=== PATIENT | female | born 1995 | race Caucasian/White ===

== ENCOUNTER 2018-06-27 23:10 | Emergency (ER) | payer MEDICAID, OTHER ==
[2018-06-27 23:10] VITALS: BMI 22.4
[2018-06-27 23:19] VITALS: RESP 18; TEMP 98.7
[2018-06-27] MEDS ORDERED: Sodium Chloride 0.9% 1,000 ML IV STA (23:25)
[2018-06-27 23:55] LABS: BASO # 0.02 K/mm3 (0.0-2.0); BASO % 0.2 % (0.0-3.0); EOS % 0.5 % (1.5-5.0); HEMOGLOBIN 13.5 g/dL (12.0-16.0); LYMPH # 1.3 (1.2-3.4); LYMPH % 14.7 % (22.0-35.0); MEAN CELL VOLUME 81.4 fl (80.0-105.0); MEAN CORPUSCULAR HEMOGLOBIN 27.3 pg (25.0-35.0); MEAN CORPUSCULAR HGB CONC 33.5 g/dl (31.0-37.0); MEAN PLATELET VOLUME 9.5 fl (7.0-11.0); MONO # 0.4 (0.1-0.6); MONO % 4.8 % (1.0-6.0); RBC 4.95 10^6/uL (3.5-6.1); RED CELL DISTRIBUTION WIDTH 13.4 % (11.5-14.5); WHITE BLOOD COUNT 8.7 10^3/uL (4.5-11.0)
[2018-06-27 23:56] LABS: PH,URINE >=9.0 (4.7-8.0); URINE BILIRUBIN NEGATIVE (NEGATIVE); URINE BLOOD NEGATIVE (NEGATIVE); URINE GLUCOSE (UA) NEGATIVE (NEGATIVE); URINE LEUKOCYTE ESTERASE NEGATIVE Leu/uL (NEGATIVE); URINE PROTEIN 30 mg/dL (<30 mg/dL); URINE UROBILINOGEN 0.2 E.U./dL (<1 E.U./dL)
[2018-06-28 00:05] LABS: INR 1.06; PARTIAL THROMBOPLASTIN TIME 27.3 Seconds (26.9-38.3); PROTHROMBIN TIME 11.8 SECONDS (9.4-12.5)
[2018-06-28 00:09] LABS: URINE COLOR YELLOW (YELLOW)
[2018-06-28 00:10] LABS: URINE APPEARANCE SL CLOUDY (CLEAR)
[2018-06-28 00:15] LABS: ALB/GLOB RATIO 1.5 (1.1-1.8); ALBUMIN 4.6 g/dL (3.0-4.8); ALT/SGPT 16 U/L (7-56); AST/SGOT 27 U/L (14-36); BLOOD UREA NITROGEN 12 mg/dL (7-21); CALCIUM 9.4 mg/dL (8.4-10.5); GFR NON-AFRICAN AMERICAN > 60; LIPASE 128 U/L (23-300)
[2018-06-28 01:13] LABS: URINE BACTERIA FEW /hpf; URINE RBC 0 - 2 /hpf (0-2); URINE WBC 0 - 2 /hpf (0-6)
[2018-06-28 01:14] LABS: URINE AMORPHOUS SEDIMENT MODERATE /hpf
--- NOTE | 2018-06-28 01:23 | ED PDOC ---
Arrival/HPI - General Chief Complaint: Abdominal Pain Time Seen by Provider: 06/27/18 23:13 Historian: Patient - History of Present Illness Narrative History of Present Illness (Text): 06/28/18 02:14 23 y/o female with no significant PMH presents to the ED c/o vomiting x 5 hours. Pt admits to approx 5 episodes of nonbloody, nonbilious emesis that began after she took an ibuprofen earlier this evening. Associated burning epigastric pain. Denies fever, chills, urinary symptoms, headache, neck pain/stiffness, sore throat, diarrhea, back pain, cough, SOB, or any other associated complaints. Past Medical History - Provider Review Nursing Documentation Reviewed: Yes - Infectious Disease Hx of Infectious Diseases: None - Cardiac Hx Cardiac Disorders: No - Pulmonary Hx Respiratory Disorders: No - Neurological Hx Neurological Disorder: No - HEENT Hx HEENT Disorder: No - Psychiatric Hx Psychophysiologic Disorder: No Hx Substance Use: Yes (marijuana) - Anesthesia Hx Anesthesia: No Hx Anesthesia Reactions: No Hx Malignant Hyperthermia: No Family/Social History - Physician Review Nursing Documentation Reviewed: Yes Family/Social History: No Known Family HX Smoking Status: Never Smoked Hx Alcohol Use: Yes Hx Substance Use: Yes (marijuana) Allergies/Home Meds Allergies/Adverse Reactions: Allergies No Known Allergies Allergy (Verified 06/27/18 23:21) Review of Systems - Review of Systems Constitutional: Normal. absent: Fevers Eyes: Normal. absent: Vision Changes, Eye Pain ENT: Normal. absent: Sore Throat, Sinus Congestion Respiratory: Normal. absent: SOB Cardiovascular: Normal. absent: Chest Pain, Palpitations, Syncope Gastrointestinal: Abdominal Pain, Nausea, Vomiting. absent: Stool Changes, Constipation, Diarrhea, Appetite Changes Genitourinary Female: Normal. absent: Dysuria, Frequency, Vaginal Bleeding, Vaginal Discharge Musculoskeletal: Normal. absent: Back Pain, Neck Pain Skin: Normal. absent: Rash Neurological: Normal. absent: Headache Physical Exam Vital Signs Reviewed: Yes Vital Signs Temp Pulse Resp BP Pulse Ox 06/27/18 23:19 98.7 F 116 H 18 112/76 98 Temperature: Afebrile Blood Pressure: Normal Pulse: Tachycardic Respiratory Rate: Normal Appearance: Positive for: Well-Appearing, Non-Toxic, Comfortable Pain Distress: None Mental Status: Positive for: Alert and Oriented X 3 - Systems Exam Head: Present: Atraumatic, Normocephalic Pupils: Present: PERRL Extroacular Muscles: Present: EOMI Conjunctiva: Present: Normal Mouth: Present: Moist Mucous Membranes Neck: Present: Normal Range of Motion. No: Meningeal Signs Respiratory/Chest: Present: Clear to Auscultation, Good Air Exchange. No: Respiratory Distress, Accessory Muscle Use Cardiovascular: Present: Regular Rate and Rhythm, Normal S1, S2, Peripheal Pulses Present Abdomen: Present: Tenderness (RUQ), Normal Bowel Sounds. No: Distention, Peritoneal Signs, McBurney's Point Tender, Rovsing's Sign Present Back: Present: Normal Inspection. No: CVA Tenderness Upper Extremity: Present: Normal Inspection, Normal ROM, NORMAL PULSES, Neurovascularly Intact, Capillary Refill < 2s. No: Cyanosis, Edema, Temperature Abnormalties Lower Extremity: Present: Normal Inspection, NORMAL PULSES, Normal ROM, Neurovascularly Intact, Capillary Refill < 2 s. No: Edema, Temperature Abnormalties Neurological: Present: GCS=15, CN II-XII Intact, Speech Normal, Motor Func Grossly Intact, Normal Sensory Function, Gait Normal Skin: Present: Warm, Dry, Normal Color. No: Rashes Psychiatric: Present: Alert, Oriented x 3, Normal Insight, Normal Concentration, Normal Affect, Normal Mood Medical Decision Making ED Course and Treatment: Initial Plan: * CBC, CMP * Lipase * Coags * UA, POC preg * RUQ US * IVF * Pepcid * Zofran Bloodwork and urine reviewed, unremarkable Ultrasound unremarkable 02:24 On re-evaluation patient reports complete resolution of symptoms. Abdomen is soft, nondistended, nontender. Vitals have improved with fluids. Diagnostic testing results and plan of care discussed with patient. Strict instructions given regarding prescription use, importance of followup, and signs/symptoms to return to ER including worsening pain, intractable vomiting, fever, SOB, or any other new/worsening symptoms. Pt verbalized understanding of discussion. Patient is A&Ox3, ambulating with steady gait, with vital signs stable for discharge. - Lab Interpretations Lab Results: PT 11.8 SECONDS (9.4-12.5) 06/27/18 23:30 INR 1.06 06/27/18 23:30 APTT 27.3 Seconds (26.9-38.3) 06/27/18 23:30 Total Bilirubin 0.2 mg/dL (0.2-1.3) 06/27/18 23:30 AST 27 U/L (14-36) 06/27/18 23:30 ALT 16 U/L (7-56) 06/27/18 23:30 Alkaline Phosphatase 70 U/L (38-126) 06/27/18 23:30 Total Protein 7.8 g/dL (5.8-8.3) 06/27/18 23: Albumin 4.6 g/dL (3.0-4.8) 06/27/18 23: Globulin 3.2 gm/dL 06/27/18 23: Albumin/Globulin Ratio 1.5 (1.1-1.8) 06/27/18 23: Lipase 128 U/L (23-300) 06/27/18 23:30 Urine Color Yellow (YELLOW) 06/27/18 23: Urine Appearance Sl cloudy (CLEAR) 06/27/18 23: Urine pH >=9.0 (4.7-8.0) 06/27/18: Ur Specific [place] 1.015 (1.005-1.035) 06/27/18 23: Urine Protein 30 mg/dL (<30 mg/dL) H 06/27/18 23:30 Urine Glucose (UA) Negative mg/dL (NEGATIVE) 06/27/18 23: Urine Ketones Negative mg/dL (NEGATIVE) 06/27/18 23:30 Urine Blood Negative (NEGATIVE) 06/27/18 23: Urine Nitrate Negative (NEGATIVE) 06/27/18: Urine Bilirubin Negative (NEGATIVE) 06/27/18: Urine Urobilinogen 0.2 E.U./dL (<1 E.U./dL) 06/27/18 23:30 Ur Leukocyte Esterase Negative [place]/uL (NEGATIVE) 06/27/18 23: Urine RBC 0 - 2 /hpf (0-2) 06/27/18 23:30 Urine WBC 0 - 2 /hpf (0-6) 06/27/18 23:30 Ur Epithelial Cells 4 - 5 /hpf (0-5) 06/27/18 23: Amorphous Sediment Moderate /hpf (NONE) 06/27/18 23:30 Urine Bacteria Few /hpf (NONE) 06/27/18 23:30 - RAD Interpretation Narrative RAD Interpretations (Text): US Abdomen: Liver is normal in size measuring 13.7 cm. Normal gallbladder thickness measuring 1.8 mm. No evidence of cholelithiasis. Nondilated common bile duct measuring 3 mm. Unremarkable visualized pancreas. Unremarkable spleen measuring 8.3 cm. Unremarkable IVC. Unremarkable aorta. Unremarkable kidneys. Impression: Unremarkable exam. Electronically signed on Jun 28, 2018 12:52:38 AM EDT by: Bebe Russell M.D., Certified by JOSÉ, MSK, [facility] Orders: 06/27/18 23:25 ABDOMEN COMPLETE [US] Stat Gold Prospector: Radiologist - Medication Orders Current Medication Orders: Discontinued Medications Famotidine (Pepcid) 20 mg IVP STAT STA Stop: 06/27/18 23:26 Last Admin: 06/27/18 23:47 Dose: 20 mg IVP Administration Document 06/27/18 23:47 CNR (Rec: 06/27/18 23:47 CNR [id number]) Charges for Administration # of IVP Administrations 1 Sodium Chloride (Sodium Chloride 0.9%) 1,000 mls @ 1,000 mls/hr IV .Q1H STA Stop: 06/28/18 00:24 Last Admin: 06/27/18 23:44 Dose: 1,000 mls/hr eMAR Start Stop Document 06/27/18 23:44 CNR (Rec: 06/27/18 23:47 CNR [id number]) Intravenous Solution Start Date 06/27/18 Start Time 23:47 End Date 06/28/18 End time 00:47 Total Infusion Time 60 Ketorolac Tromethamine (Toradol) 30 mg IVP STAT STA Stop: 06/27/18 23:26 Last Admin: 06/27/18 23:48 Dose: 30 mg MAR Pain Assessment Document 06/27/18 23:48 CNR (Rec: 06/27/18 23:48 CNR [id number]) Pain Reassessment Is this a pain reassessment? No IVP Administration Document 06/27/18 23:48 CNR (Rec: 06/27/18 23:48 CNR [id number]) Charges for Administration # of IVP Administrations 1 Ondansetron HCl (Zofran Inj) 4 mg IVP STAT STA Stop: 06/27/18 23:26 Last Admin: 06/27/18 23:47 Dose: 4 mg IVP Administration Document 06/27/18 23:47 CNR (Rec: 06/27/18 23:47 CNR [id number]) Charges for Administration # of IVP Administrations 1 Disposition/Present on Arrival - Present on Arrival Any Indicators Present on Arrival: No History of DVT/PE: No History of Uncontrolled Diabetes: No Urinary Catheter: No History of Decub. Ulcer: No History Surgical Site Infection Following: None - Disposition Have Diagnosis and Disposition been Completed?: Yes Diagnosis: Abdominal pain, Vomiting Disposition: HOME/ ROUTINE Disposition Time: 01:15 Patient Plan: Discharge Condition: IMPROVED Discharge Instructions (ExitCare): Acute Abdomen (Belly Pain), Nausea and Vomiting, Adult (DC) Additional Instructions: Increase fluids Rest, no strenuous activity Pepcid every 12 hours as needed Followup with GI within 2 days Followup with PMD within 2 days Return to ER with any new/worsening symptoms Prescriptions: Famotidine [Pepcid] 20 mg PO Q12 PRN #30 tab PRN Reason: Indigestion Referrals: [facility] [place] [facility] [place] - Follow up with primary Shaniqua Horton MD [Medical Doctor] - Follow up with primary Chay Rivero DO [Staff Provider] - Follow up with primary Forms: [facility] (Mongolian), WORK NOTE
[2018-06-28 01:31] VITALS: BP 124/79; PULSE 90; O2SAT 100
--- NOTE | 2018-06-28 11:58 | US ---
Date of service: 06/27/2018 HISTORY: RUQ pain, vomiting COMPARISON: None. TECHNIQUE: Sonographic evaluation of the abdomen. FINDINGS: LIVER: Measures 13.7 cm. Normal echogenicity of the liver parenchyma. No mass. No intrahepatic bile duct dilatation. Main portal vein demonstrates normal directional flow. GALLBLADDER: Unremarkable. No gallstones. COMMON BILE DUCT: Measures 3 mm. No stones. No dilatation. PANCREAS: Unremarkable as visualized. No mass. No ductal dilatation. RIGHT KIDNEY: Measures 9.7 x 4.1 x 5.9cm. Normal echogenicity. No calculus, mass, or hydronephrosis. LEFT KIDNEY: Measures 10.6 x 5.8 x 7.1cm. Normal echogenicity. No calculus, mass, or hydronephrosis. SPLEEN: Normal in size and contour. No mass. AORTA: No aneurysmal dilatation. IVC: Unremarkable. OTHER FINDINGS: None. IMPRESSION: Unremarkable abdominal sonogram.
== END 2018-06-28 01:30 | disposition home or self-care (01) ==
LOC: ED 23:10
DX: R11.10 Vomiting, unspecified (principal); R10.9 Unspecified abdominal pain
CPT/HCPCS: 76700; 80053; 81001; 81025; 83690; 83735; 85025; 85610; 85730; 96361; 96374; 96375; 99284; J1885; J2405; J7030